=== PATIENT | female | born 2005 | race Caucasian/White ===

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

== ENCOUNTER 2025-02-04 09:08 | Emergency (ER) | payer BC ==
[2025-02-04] MEDS ORDERED: Triple Antibiotic Oint 1 GM Packet ONE (10:01)
== END 2025-02-04 10:10 | disposition home or self-care (01) ==
LOC: CSHERS 09:08
DX: T24.212A Burn of second degree of left thigh, initial encounter (principal); X11.1XXA Contact with running hot water, initial encounter
CPT/HCPCS: 16000; 99283

== ENCOUNTER 2025-02-18 09:49 | Outpatient (CLI) | payer BC | END 2025-02-18 09:50 | disposition home or self-care (01) | LOC: CSHWCC 09:49 | PROVIDERS: ATTEND Nurse Practitioner Family | DX: T24.212D Burn of second degree of left thigh, subsequent encounter (principal); T25.222D Burn of second degree of left foot, subsequent encounter | CPT/HCPCS: 16020 ==

== ENCOUNTER 2025-02-25 09:46 | Outpatient (CLI) | payer BC | END 2025-02-25 09:47 | disposition home or self-care (01) | LOC: CSHWCC 09:46 | PROVIDERS: ATTEND Nurse Practitioner Family | DX: T24.212D Burn of second degree of left thigh, subsequent encounter (principal); T25.222D Burn of second degree of left foot, subsequent encounter | CPT/HCPCS: 16020 ==

== ENCOUNTER 2025-03-15 08:10 | Outpatient (CLI) | payer BC | END 2025-03-15 08:11 | disposition home or self-care (01) | LOC: CSHWCC 08:10 | PROVIDERS: ATTEND Nurse Practitioner Family | DX: T24.212D Burn of second degree of left thigh, subsequent encounter (principal) | CPT/HCPCS: 16020 ==

== ENCOUNTER 2025-03-23 14:08 | Outpatient (CLI) | payer BC | END 2025-03-23 14:09 | disposition home or self-care (01) | LOC: CSHWCC 14:08 | PROVIDERS: ATTEND Nurse Practitioner Family | DX: T24.212D Burn of second degree of left thigh, subsequent encounter (principal) | CPT/HCPCS: 11042 ==

== ENCOUNTER 2025-03-30 14:40 | Outpatient (CLI) | payer BC | END 2025-03-30 14:41 | disposition home or self-care (01) | LOC: CSHWCC 14:40 | PROVIDERS: ATTEND Nurse Practitioner Family | DX: T24.212D Burn of second degree of left thigh, subsequent encounter (principal) | CPT/HCPCS: 99212; G0463 ==